=== PATIENT | female | born 1960 | race Caucasian/White ===

== ENCOUNTER 2017-03-22 12:38 | Emergency (ER) | payer OTHER ==
[~2017-03-22] VITALS: Ht 162.6 cm; Wt 66.9 kg
[2017-03-22] MEDS ORDERED: ALPRAZOLAM0.5 MG PO (12:58)
[2017-03-22] MEDS ORDERED: LOSARTAN POTAS100 MG PO (12:59)
[2017-03-22] MEDS ORDERED: SERTRALINE HCL100 MG PO (12:59)
[2017-03-22] MEDS ORDERED: AMLODIPINE BESYL5 MG PO (12:59)
[2017-03-22] MEDS ORDERED: PRILOSEC10 MG PO (13:00)
[2017-03-22] MEDS ORDERED: LO-DOSE ASPIRIN81 M2 PO (13:00)
[2017-03-22 13:01] LABS: HEMATOCRIT 40.3 % (36.0-46.0); MCH 25.5 PG (29.0-34.0); MCHC 31.3 G/DL (30.0-36.0); MCV 81.6 FL (83-99); MEAN PLAT.VOLUME 9.7 uM^3 (9.5-12.4); PLATELET COUNT 285 K/uL (156-360); RBC DIS.WIDTH-CV 14.9 % (11.8-14.6); RED BLOOD COUNT 4.94 M/uL (3.80-5.20); WHITE BLOOD COUNT 5.8 K/uL (4.1-10.2)
[2017-03-22 13:05] LABS: ADD MIUA? YES; BILIRUBIN NEGATIVE; BLOOD NEGATIVE; COLOR YELLOW ((YELLOW)); GLUCOSE (STRIP) NEGATIVE; KETONES NEGATIVE; LEUKOCYTES NEGATIVE; NITRITE NEGATIVE; PROTEIN (STRIP) NEGATIVE; UROBILINOGEN 0.2 MG/DL (0.2-1.0)
[2017-03-22 13:13] LABS: CHLORIDE 106 mEq/L (99-109); POTASSIUM 3.8 mEq/L (3.7-5.4); SODIUM 140 mEq/L (136-147)
[2017-03-22 13:15] LABS: GLUCOSE 93 mg/dL (70-99)
[2017-03-22 13:16] LABS: BACTERIA 1+ /HPF; BUDDING YEAST 2+; CALCIUM OXALATE CRYSTALS 2+ /HPF; EPITHELIAL CELLS 1+ /HPF; MUCUS TRACE /LPF; RED BLOOD CELLS 0-5 /HPF (0-5); UCUL ADDED? NO; WHITE BLOOD CELLS 0-5 /HPF (0-5)
[2017-03-22 13:16] LABS: ANION GAP 10 MEQ/L (2-14)
[2017-03-22 13:17] LABS: TOTAL BILIRUBIN 0.3 mg/dL (0.0-1.0)
[2017-03-22 13:18] LABS: ALKALINE PHOSPHATASE 129 IU/L (3-129)
[2017-03-22 13:19] LABS: GFR ESTIMATE (CALCULATED) > 59 mL/min/
[2017-03-22 13:20] LABS: UREA NITROGEN (BUN) 6 mg/dL (9-23)
[2017-03-22 13:22] LABS: LIPASE 31 U/L (1.0-51.0)
[2017-03-22] MEDS ORDERED: ZOFRAN ODT4 MG PO (14:17)
[2017-03-22] MEDS ORDERED: CIPRO500 MG PO (14:17)
[2017-03-22] MEDS ORDERED: BENTYL10 MG PO (14:17)
[2017-03-22 14:49] VITALS: BP 125/62
== END 2017-03-22 14:55 | disposition home or self-care (01) ==
LOC: EME 12:38
DX: A09 Infectious gastroenteritis and colitis, unspecified (principal); I10 Essential (primary) hypertension; Z79.82 Long term (current) use of aspirin
CPT/HCPCS: 74177; 80053; 81003; 83690; 85027; 87493; 99281; 99285; J2405; J7030

== ENCOUNTER 2018-05-06 15:59 | Emergency (ER) | payer OTHER ==
[~2018-05-06] VITALS: Ht 162.6 cm; Wt 72.0 kg
[~2018-05-06 15:59] MED LIST: ALPRAZOLAM0.5 MG PO; AMLODIPINE BESYL5 MG PO; BENTYL10 MG PO; CIPRO500 MG PO; LO-DOSE ASPIRIN81 M2 PO; LOSARTAN POTAS100 MG PO; PRILOSEC10 MG PO; SERTRALINE HCL100 MG PO; ZOFRAN ODT4 MG PO
[2018-05-06] MEDS ORDERED: FLEXERIL10 MG PO (16:31)
[2018-05-06] MEDS ORDERED: MOTRIN600 MG PO (16:31)
[2018-05-06 17:20] VITALS: BP 171/79
== END 2018-05-06 17:20 | disposition home or self-care (01) ==
LOC: EME 15:59
DX: S16.1XXA Strain of muscle, fascia and tendon at neck level, initial encounter (principal); R51 Headache; V43.52XA Car driver injured in collision with other type car in traffic accident, initial encounter; I10 Essential (primary) hypertension; Z79.82 Long term (current) use of aspirin
CPT/HCPCS: 99281; 99283